=== PATIENT | female | born 1990 | race Caucasian/White ===

== ENCOUNTER 2017-08-04 06:07 | Emergency (ER) | payer BC ==
[~2017-08-04] VITALS: Ht 157.5 cm; Wt 62.6 kg
[2017-08-04] MEDS ORDERED: ZOLMITRIPTAN O2.5 MG (06:21)
== END 2017-08-04 09:22 | disposition home or self-care (01) ==
LOC: ER 06:07
DX: G43.109 Migraine with aura, not intractable, without status migrainosus (principal)